=== PATIENT | female | born 2000 | race Caucasian/White ===

== ENCOUNTER 2019-10-10 00:52 | Emergency (ER) | payer MEDICAID ==
[~2019-10-10] VITALS: Ht 160 cm; Wt 53.1 kg
[2019-10-10 01:03] VITALS: Ht 160 cm; Wt 53.1 kg
[2019-10-10 01:40] VITALS: BP 144/86
== END 2019-10-10 01:40 | disposition home or self-care (01) ==
LOC: ED 00:52
DX: F41.1 Generalized anxiety disorder (principal); G47.00 Insomnia, unspecified